=== PATIENT | female | born 2000 | race Hispanic/Latino ===

== ENCOUNTER 2023-05-23 12:23 | Emergency (ER) | payer SELFPAY ==
--- NOTE | ~2023-05-23 | US_ITS ---
Pelvic ultrasound. Clinical History: First trimester , vaginal bleeding Technique: Realtime transabdominal and transvaginal scanning of the pelvis was performed. Color flow Doppler and Doppler spectral analysis were performed. Findings: The uterus is anteverted, and contains an early intrauterine gestational sac. Grygla-rump le ngth of 4 mm corresponds to an estimated gestational age of 6 weeks 1 day. Yolk sac present. he art rate 117 bpm. Probable tiny subchorionic hemorrhage.. The right ovary measures 2.8 x 1.6 x 2.3 cm. No significant right ovarian or adnexal mass is seen. The left ovary measures 3.6 x 1.8 x 2.4 cm. No significant left ovarian or adnexal mass is seen. There is no evidence of free fluid in the cul de sac. Impression: Live intrauterine gestation, with estimated gestational age of 6 weeks 1 day. heart rate 117 bp m. Probable tiny subchorionic hemorrhage. Reviewed, dictated and finalized at location M. TRICAL HELPER Impression: Live intrauterine gestation, with estimated gestational age of 6 weeks 1 day. F etal heart rate 117 bpm. Probable tiny subchorionic hemorrhage.
[2023-05-23 12:29] VITALS: BP 106/75; PULSE 95; RESP 16; TEMP 37.3; O2SAT 99
[2023-05-23 14:28] VITALS: BP 126/70; PULSE 100; RESP 18; O2SAT 100
--- NOTE | 2023-05-23 14:36 | ED.PREGNANCY ---
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 Ongoing since last night. Also reports pelvic cramping. She has not seen an OB yet or had an US. Denies fever, or vomiting. Related Data Allergies Allergy/AdvReac Type Severity Reaction Status Date / Time No Known Allergies Allergy Verified 05/23/23 14:27 Review of Systems Review of Systems: CONSTITUTIONAL: Denies fever GASTROINTESTINAL: Reports pelvic cramping GENITOURINARY: Reports vaginal bleeding All systems reviewed & are unremarkable except as noted in HPI and below PMFSH Past Medical History Medical History (Updated 05/23/23 @ 18:17 by Flavia Harvey PA-C) History of anemia Social History Social History (Updated 05/23/23 @ 14:38 by Flavia Harvey PA-C) Smoking status: Never smoker Exam Narrative: GENERAL: Well-appearing, well-nourished, and in no acute distress. HEAD: Normocephalic, atraumatic. EYES: EOMI. CHEST: Clear to auscultation. No respiratory distress. No wheezes rales or rhonchi HEART: Regular rate and rhythm. No murmur heard. Normal peripheral pulses. ABDOMEN: Soft, nontender, nondistended, normal active bowel sounds. EXTREMITIES: Normal range of motion. No edema. SKIN: Warm, dry, no rash. NEURO: No focal deficits. Alert and oriented x3. PSYCH: Normal mood and affect PELVIC: Small amount of brown discharge in the vaginal vault Course Course Emergency Course: Patient updated on workup and agrees with plan of care Vital Signs Vital signs: Vital Signs Temperature 99.2 F 05/23/23 12:29 Pulse Rate 95 05/23/23 12:29 Respiratory Rate 16 05/23/23 12:29 Blood Pressure 106/75 05/23/23 12:29 Pulse Oximetry 99 05/23/23 12:29 Temperature 97.8 F 05/23/23 17:56 Pulse Rate 92 05/23/23 17:56 Respiratory Rate 14 05/23/23 17:56 Blood Pressure 118/71 05/23/23 17:56 Pulse Oximetry 99 05/23/23 17:56 MDM - OB/Uterine Contractions MDM Narrative Medical decision making narrative: Patient presents to the emergency department for vaginal bleeding in early . She is afebrile and nontoxic appearing. Her vitals are stable. Hemoglobin is normal. Quantitative beta-hCG 28,239. Patient is O positive. Mild amount of brown discharge in the vaginal vault, no active bleeding. Obstetrical ultrasound shows a live intrauterine gestation with estimated gestational age of 6 weeks 1 day. heart rate 117. Probable tiny subchorionic hemorrhage. Patient was updated on her workup and agrees with plan of care. Will be given follow-up with OB. She was given warnings to return to the ER Differential Diagnosis Differential diagnosis: Likely other ( Threatened miscarriage, subchorionic hemorrhage) Lab Data Attestation: I reviewed the patient's lab results. 05/23/23 14:33 05/23/23 14:33 Labs: Lab Results 05/23/23 Range/Units 14:33 WBC 12.7 H (4.5-10.0) K/mm3 RBC 5.03 (4.2-5.4) M/mm3 Hgb 12.7 (12.0-15.0) g/dL Hct 40.3 (37.0-47.0) % MCV 80.1 (80-100) fl MCH 25.2 L (26-34) pg MCHC 31.5 L (32-36) g/dl RDW TNP Plt Count 293 (150-375) k/mm3 MPV 9.4 (7.4-10.4) fl Immature Gran % (Auto) 0.3 (0-0.5) % Neut % (Auto) 46.9 (45.5-73.1) % Lymph % (Auto) 26.8 (18.3-44.2) % [place] % (Auto) 5.3 (2.6-8.5) % Eos % (Auto) 20.3 H (0-4.4) % Baso % (Auto) 0.4 (0.2-1.2) % Lymph # (Auto) 3.40 H (0.9-3.2) K/mm3 [place] # (Auto) 0.7 H (0.1-0.6) K/mm3 Eos # (Auto) 2.6 H (0-0.3) K/mm3 Baso # (Auto) 0.1 (0.0-0.1) K/mm3 Abs Immat Gran (auto) 0.04 H (0.00-0.031) K/mm3 Absolute Neuts (auto) 6.0 (1.3-6.7) K/mm3 A
[2023-05-23 14:45] LABS: Basophils Absolute Auto 0.1 K/mm3 (0.0-0.1); Basophils Percent Auto 0.4 % (0.2-1.2); Eosinophils Absolute Auto 2.6 K/mm3 (0-0.3); Eosinophils Percent Auto 20.3 % (0-4.4); Hematocrit 40.3 % (37.0-47.0); Hemoglobin 12.7 g/dL (12.0-15.0); Immature Granulocyte Absolute 0.04 K/mm3 (0.00-0.031); Immature Granulocyte Percent A 0.3 % (0-0.5); Lymphocytes Percent Auto 26.8 % (18.3-44.2); Mean Corpuscular HGB Conc 31.5 g/dl (32-36); Mean Corpuscular Hemoglobin 25.2 pg (26-34); Mean Corpuscular Volume 80.1 fl (80-100); Mean Platelet Volume 9.4 fl (7.4-10.4); Monocytes Absolute Auto 0.7 K/mm3 (0.1-0.6); Monocytes Percent Auto 5.3 % (2.6-8.5); Neutrophils Percent Auto 46.9 % (45.5-73.1); Platelet Count Result 293 k/mm3 (150-375); Red Blood Count 5.03 M/mm3 (4.2-5.4); White Blood Count 12.7 K/mm3 (4.5-10.0)
[2023-05-23 14:52] LABS: Alanine Aminotransferase 45 U/L (6-35); Albumin Level 4.1 g/dL (3.5-5.1); Alkaline Phosphatase 91 U/L (38-126); Anion Gap 7 mmol/L (8-16); Aspartate Amino Transferase 43 U/L (14-36); Bilirubin,Total 0.4 mg/dL (0.2-1.3); Blood Urea Nitrogen 9 mg/dL (7-17); Calcium 9.2 mg/dL (8.4-10.2); Carbon Dioxide 23 mmol/L (22-30); Chloride 106 mmol/L (98-107); Estimated CRCL calculation 118 ml/min; Estimated Glomerular Filt Rate > 60; Glucose 89 mg/dL (65-110); Potassium 3.7 mmol/L (3.4-5.0); Prothrombin Time 13.4 Seconds (11.1-14.7); Sodium 136 mmol/L (137-145)
[2023-05-23 14:58] LABS: Hypochromasia 1+ (NORMAL); Platelet Estimate Adequate (Adequate); Schistocytes None Seen (NORMAL)
[2023-05-23 14:59] LABS: Atypical Lymphocytes Present
[2023-05-23 17:56] VITALS: BP 118/71; PULSE 92; RESP 14; TEMP 36.6; O2SAT 99
== END 2023-05-23 18:48 | disposition home or self-care (01) ==
PROVIDERS: Emergency Provider Physician Assistant; PCP Registered Nurse
DX: O20.8 Other hemorrhage in early pregnancy (principal); Z3A.01 Less than 8 weeks gestation of pregnancy
CPT/HCPCS: 36415; 76801; 76817; 80053; 81025; 84702; 85025; 85461; 85610; 85730; 86850; 86900; 86901; 99284

== ENCOUNTER 2023-07-16 15:45 | Outpatient (CLI) | payer MEDICAID, SELFPAY ==
--- NOTE | ~2023-07-16 | US_ITS ---
EXAMINATION: US OB follow up DATE: 07/16/2023 16:33 INDICATION: Follow-up subchorionic hematoma. TECHNIQUE: Real-time ultrasound of the pelvis was performed. The interpreting radiologist was not pre sent for the study. COMPARISON: None. FINDINGS: There is a single living fetus in vertex presentation. The placenta is anterior. There appears to be an upturned caudal margin of the placenta suggesting a circumvallate placenta. heart rate is 1 48 beats per minute (bpm). The amniotic fluid volume appears subjectively normal. The following biometric data were obtained: CRL: 8.7 cm -> 14 weeks 4 days BPD: 2.7 cm -> 14 weeks 5 days Head circumference: 9.8 cm -> 14 weeks 4 days Abdominal circumference: 8.7 cm -> 15 weeks 0 days Femur length: 1.5 cm -> 14 weeks 4 days These measurements are concordant. Head circumference to abdominal circumference ratio: 1.13 (normal range 1.06-1.38). Estimated weight: 104 g (+/-) 16 g or 4 oz. (+/-) 1 oz. IMPRESSION: 1. Single living fetus in vertex presentation with heart rate of 148 bpm. 2. Gestational age by ultrasound of 14 weeks 5 day(s) +/- 1 week(s) 0 day(s) with ultrasound estimate d date of delivery (ROXANA) of 01/09/2024. Estimated weight is 94th percentile by Hadlock criteria when 01/16/2024 is used as the ROXANA based upon crown-rump length measurement from ultrasound performed on 05/23/2023. Please correlate with clinical information or earlier ultrasounds for most accurate ROXANA . 3. Likely circumvallate placenta with upturning of the caudal margin of the placenta. Reviewed, dictated and finalized at location A. IMPRESSION: 1. Single living fetus in vertex presentation with heart rate of 148 bpm. 2. Gestational age by ultrasound of 14 weeks 5 day(s) +/- 1 week(s) 0 day(s) wi th ultrasound estimated date of delivery (ROXANA) of 01/09/2024. Estimated we ight is 94th percentile by Hadlock criteria when 01/16/2024 is used as the ROXANA b ased upon crown-rump length measurement from ultrasound performed on 05/23/2023. Please correlate with clinical information or earlier ultrasounds for most acc urate ROXANA. 3. Likely circumvallate placenta with upturning of the caudal margin of the amish centa.
== END 2023-07-16 15:46 | disposition home or self-care (01) ==
LOC: ANHIMG 15:50
PROVIDERS: PCP Registered Nurse; Visit Provider Obstetrics & Gynecology
DX: O41.8X10 Other specified disorders of amniotic fluid and membranes, first trimester, not applicable or unspecified (principal); Z3A.00 Weeks of gestation of pregnancy not specified
CPT/HCPCS: 76816

== ENCOUNTER 2023-07-21 13:18 | Outpatient (CLI) | payer MEDICAID, SELFPAY ==
[2023-07-21 13:36] LABS: Hematocrit 42.5 % (37.0-47.0); Hemoglobin 14.2 g/dL (12.0-15.0); Mean Corpuscular HGB Conc 33.4 g/dl (32-36); Mean Corpuscular Hemoglobin 28.2 pg (26-34); Mean Corpuscular Volume 84.5 fl (80-100); Mean Platelet Volume 9.4 fl (7.4-10.4); Platelet Count Result 235 k/mm3 (150-375); Red Blood Count 5.03 M/mm3 (4.2-5.4); Red Cell Distribution Width 16.1 % (11.5-14.5); White Blood Count 11.1 K/mm3 (4.5-10.0)
[2023-07-21 14:11] LABS: Appearance Urine Clear (Clear); Bilirubin Urine Negative (Negative); Blood Urine Negative (Negative); Color Urine Yellow (Yellow); Glucose Urine UA Negative (Negative); Ketones Urine Negative (Negative); Leukocyte Esterase Ur Negative LEU/UL (Negative); Nitrate Urine Negative (Negative); Protein Urine Negative (Negative); Specific Grav Ur 1.019 (1.001-1.035)
[2023-07-21 14:19] LABS: Thyroid Stimulating Hormone 0.259 uIU/mL (0.465-4.680)
[2023-07-21 14:28] LABS: HIV 1/2 Ab P24 Ag Result Negative (Negative)
[2023-07-21 14:36] LABS: Add Urine Microscopic? NO
[2023-07-21 15:08] LABS: Hepatitis B Surface Antigen Negative (Negative); Rubella IgG Antibody 3.9 IU/ML
[2023-07-21 15:18] LABS: Hepatitis C Virus Antibody Negative (Negative)
[2023-07-22 14:40] LABS: Rapid Plasma Reagin Non-Reactive (NonReactive)
[2023-07-24 13:33] LABS: Hematocrit 43.4 % (35.0-45.0); Hemoglobin 14.2 g/dL (11.7-15.5); MCH 28.1 pg (27.0-33.0); MCV 85.8 fL (80.0-100.0); RDW 15.6 % (11.0-15.0); Red Blood Cell Count 5.06 Mill/uL (3.80-5.10)
== END 2023-07-21 13:19 | disposition home or self-care (01) ==
PROVIDERS: PCP Registered Nurse; Visit Provider Obstetrics & Gynecology
DX: Z34.90 Encounter for supervision of normal pregnancy, unspecified, unspecified trimester (principal); Z3A.00 Weeks of gestation of pregnancy not specified
CPT/HCPCS: 36415; 81003; 83021; 84443; 85027; 86592; 86703; 86762; 86787; 86803; 86850; 86900; 86901; 87340; G0432

== ENCOUNTER 2023-10-19 15:47 | Outpatient (CLI) | payer MEDICAID, SELFPAY ==
[2023-10-19 17:06] LABS: Hematocrit 37.9 % (37.0-47.0); Hemoglobin 12.6 g/dL (12.0-15.0); Mean Corpuscular HGB Conc 33.2 g/dl (32-36); Mean Corpuscular Hemoglobin 30.1 pg (26-34); Mean Corpuscular Volume 90.5 fl (80-100); Mean Platelet Volume 9.8 fl (7.4-10.4); Platelet Count Result 267 k/mm3 (150-375); Red Blood Count 4.19 M/mm3 (4.2-5.4); White Blood Count 12.2 K/mm3 (4.5-10.0)
[2023-10-19 17:18] LABS: Glucose 1 Hour PP 50gm Dose 130 mg/dL
== END 2023-10-19 15:48 | disposition home or self-care (01) ==
LOC: ANHLAB 15:50
PROVIDERS: PCP Registered Nurse; Visit Provider Nurse Practitioner Family
DX: O26.93 Pregnancy related conditions, unspecified, third trimester (principal); Z3A.00 Weeks of gestation of pregnancy not specified
CPT/HCPCS: 36415; 82947; 85027